=== PATIENT | female | born 1975 | race Caucasian/White ===

== ENCOUNTER 2018-11-12 22:15 | Emergency (ER) | payer SELFPAY ==
[2018-11-12 22:32] VITALS: BP 151/76; PULSE 114; TEMP 102; BMI 28.0
--- NOTE | 2018-11-12 22:44 | PDOC ---
History of Present Illness - General Chief Complaint: SIRS, Suspected/Possible Stated Complaint: urinary problem Time Seen by Provider: 11/12/18 22:43 - History of Present Illness Initial Comments: 42yo F with history of obesity, hysterectomy, UTI presenting with fever, chills , myalgia, malaise, dysuria, frequency, urgency x 1 week. Patient states she has had a fever for about a week, as well as dysuria and frequency. She was seen at a clinic today and was given 1g of rocephin and sent with a keflex prescription. Patient presents to this ED because she has continued to have a fever and was instructed to see a doctor if her fever were to persist. Denies history of kidney stones. She has had some nausea but no vomiting. Patient also reports back pain. Last bowel movement was today and was a normal formed brown stool without blood. No chest pain or shortness of breath. Past History - Past Medical History Allergies/Adverse Reactions: Allergies Allergy/AdvReac Type Severity Reaction Status Date / Time No Known Allergies Allergy Verified 11/12/18 22:34 COPD: No - Suicide/Smoking/Psychosocial Hx Smoking History: Never smoked Have you smoked in the past 12 months: No Information on smoking cessation initiated: No Hx Alcohol Use: No Drug/Substance Use Hx: No Review of Systems - Review of Systems Comments:: Constitutional: +fever, +chills HEENT: no throat pain, no dysphagia Cardiovascular: no chest pain, no palpitations Respiratory: no cough, no shortness of breath Gastrointestinal: +nausea, no vomiting Genitourinary: +dysuria, +frequency Musculoskeletal: no myalgia, no arthralgia Skin: no rash, no itching Neurologic: no headache, no dizziness *Physical Exam - Vital Signs Last Vital Signs Temp Pulse Resp BP Pulse Ox 102.0 F H 114 H 16 151/76 100 11/12/18 22:28 11/12/18 22:28 11/12/18 22:28 11/12/18 22:28 11/12/18 22:28 - Physical Exam Comments: General: Awake, alert, and fully oriented, in no acute distress Head: No signs of trauma Eyes: EOMI, sclera anicteric ENT: Moist mucus membranes Neck: Normal ROM, supple Lungs: Lungs clear, Normal breath sounds Cardio: Regular rhythm, S1 and S2 present, grade II systolic murmur present Abdomen: Mild epigastric and suprapubic tenderness to palpation. Soft, nondistended. No guarding, no rebound, no masses. +CVA tenderness bilaterally Extremities: Normal range of motion, Distal pulses present SKIN: Warm, Dry, normal turgor Neurologic: Cranial nerves II through XII grossly intact. Normal speech Moderate Sedation - Procedure Monitoring Vital Signs: Procedure Monitoring Vital Signs Temperature 102.0 F H 11/12/18 22:28 Pulse Rate 114 H 11/12/18 22:28 Respiratory Rate 16 11/12/18 22:28 Blood Pressure 151/76 11/12/18 22:28 O2 Sat by Pulse Oximetry (%) 100 11/12/18 22:28 ED Treatment Course - LABORATORY CBC & Chemistry Diagram: 11/12/18 23:52 11/12/18 23:52 Medical Decision Making - Medical Decision Making 42yo F with history of obesity, hysterectomy presenting with fever, chills, myalgia, malaise, dysuria, frequency, urgency x 1 week. DDX includes but not limited UTI, complicated vs simple; pyelonephritis; kidney stone; ectopic Ofirmev, Zofran, 1L NS Labs from septic order set sent CTAP with contrast ordered 11/12/18 23:45 Patient signed out to Dr. Ryan *DC/Admit/Observation/Transfer Diagnosis at time of Disposition: UTI (urinary tract infection) - Discharge Dispostion Disposition: HOME Condition at time of disposition: Good - Referrals - Patient Instructions Printed Discharge Instructions: DI for Urinary Tract Infection (UTI) Additional Instructions: Please continue taking your keflex. Please return if you have any new, worsening or concerning symptoms, especially weakness and increasing pain. Please return if you do not improve in 2-3 days. Please follow up with your primary care physician. Por favor contine tomando govea keflex. Por favor regrese si tiene sntomas nuevos, que empeoran o estn relacionados, especialmente la debilidad y el dolor creciente. Por favor regrese si no mejora en 2-3 barragan. Por favor maria g un seguimiento con govea mdico de atencin primaria. - Post Discharge Activity
[2018-11-12] MEDS ORDERED: CEFTRIAXONE 1,000 MG in DEXTROSE 5%-WATER - 50 ML IVPB ONE (23:21)
[2018-11-12] MEDS ORDERED: ACETAMINOPHEN 1000 MG/100 ML VIAL (NON FORMULARY) IVPB ONE (23:21)
[2018-11-12] MEDS ORDERED: SODIUM CHLORIDE 1,000 ML IV STA (23:21)
[2018-11-12] MEDS ORDERED: ONDANSETRON 4 MG/2 ML VIAL IVPUSH ONE (23:23)
--- NOTE | 2018-11-12 23:59 | PDOC ---
Attending Attestation - HPI HPI: 11/13/18 00:00 The patient is a 42 year old female with past medical history significant for UTIs presents to the emergency department with a fever, headache, abdominal pain, back pain and urinary symptoms. The patient presents with 5 days of fever , chills, myalgia, fatigue, abdominal pain/bloating, back pain, dysuria, frequency/urgency to urinate. The patient reports she was seen at a clinic earlier today, where was given 1 dose of rocephin and sent home with Keflex prescription. The patient states at the clinic her temp was 104 that improves. The patient presents secondary to no relief in symptoms. Denies hematuria, vomiting, diarrhea, or constipation. Denies chest pain and SOB. Denies hx of Kidney stones. Allergies: NKDA Surgical history: Hysterectomy. - Physicial Exam PE: 11/13/18 00:00 Vitals: Triage vital signs reviewed General Appearance: No acute distress, well nourished, well developed Neck: Supple; No nuchal rigidity Chest Wall: Nontender Cardiac: Regular rate and rhythm, no murmurs, no rubs, no gallops Lungs: Clear to auscultation bilateral, good air movement bilaterally Abdomen: +epigastric pain, Bilateral flank pain. Soft, nondistended. Extremities: Full range of motion to all extremities, no cyanosis, clubbing, or edema Skin: Warm and dry, no rashes or lesions, no rash, no petechiae. - Medical Decision Making 11/13/18 00:00 Documentation prepared by Aneta Sanon, acting as expert medical writer for Onel South MD. 11/13/18 00:01 Plan: Labs: CBC, CMP, Lactic Acid, Serum , UA, Blood/Urine Culture. Meds: Nausea medication and pain medication. Imaging: CT Abdomen/Pelvic. <Aneta Sanon - Last Filed: 11/13/18 00:02> - Medical Decision Making 11/13/18 02:41 Patient Name: ALONSO HERRERA THIS IS A PRELIMINARY REPORT FROM [facility]ACHIN[facility] DATE OF SERVICE: 2018-11-13 01:51:49 IMAGES: [id number] EXAM: CT ABDOMEN \T\ PELVIS CT WITH CONTR HISTORY: Abdominal pain, nonspecified COMPARISON: None. FINDINGS: Abdomen Liver: Normal Spleen: Normal Pancreas: Normal Gallbladder: Normal Stomach: Normal Small bowel: Normal Large bowel: Normal Appendix: Normal Adrenals:Normal Kidneys: Normal Vascular: Normal Lymphatic: Normal Peritoneal: No free peritoneal air or fluid Pelvis: Uterus: normal Rectum: Normal Bladder: Normal The inferior thorax: Normal General: Skeletal: Normal Abdominal wall: Normal IMPRESSION: No acute findings 11/13/18 Influenza is negative. Pt will be discharged home. <Veena Sorensen - Last Filed: 11/13/18 04:40> - Resident Resident Name: Krystal Hightower - ED Attending Attestation I have performed the following: I have examined & evaluated the patient, The case was reviewed & discussed with the resident, I agree w/resident's findings & plan, Exceptions are as noted - Medical Decision Making 42 years old with 5 day history of fever recently diagnosed with UTI given 1 g ceftriaxone and prescription for Keflex as an outpatient returned home again developed fever began feeling unwell with suprapubic discomfort and mild diffuse abdominal discomfort and presented to the ED for further evaluation Her laboratory analysis is unremarkable she feels better after IV fluids and IV Tylenol given the persistence of her pain and fever a CAT scan with IV contrast was ordered which is pending Dr. Sorensen to follow up CT reasses and dispo <Onel South - Last Filed: 11/13/18 20:32>
[2018-11-13 00:06] LABS: BASO % 0.3 % (0-2.0); EOS % 0.2 % (0-4.5); HEMATOCRIT 38.7 % (32.4-45.2); HEMOGLOBIN 13.6 GM/dL (10.7-15.3); LYMPH % 11.3 % (8-40); MCH 33.2 pg (25.7-33.7); MCHC 35.2 g/dl (32.0-36.0); MEAN CELL VOLUME 94.2 fl (80-96); MEAN PLT VOLUME 9.6 fl (7.5-11.1); MONO % 12.2 % (3.8-10.2); PLATELET COUNT 205 K/MM3 (134-434); RDW 13.4 % (11.6-15.6); WHITE BLOOD COUNT 9.2 K/mm3 (4.0-10.0)
[2018-11-13] MEDS ORDERED: ACETAMINOPHEN INJECTION 100 ML IVPB ONE (00:07)
[2018-11-13] MEDS ORDERED: ONDANSETRON 4 MG/2 ML VIAL ONE (00:07)
--- NOTE | 2018-11-13 00:09 | PDOC ---
*Physical Exam - Vital Signs Last Vital Signs Temp Pulse Resp BP Pulse Ox 102.0 F H 114 H 16 151/76 100 11/12/18 22:28 11/12/18 22:28 11/12/18 22:28 11/12/18 22:28 11/12/18 22:28 ED Treatment Course - LABORATORY CBC & Chemistry Diagram: 11/12/18 23:52 11/12/18 23:52 Medical Decision Making - Medical Decision Making 11/13/18 00:04 42 year old female with PMH multiple UTIs, hysterectomy presented to ED for fever of 102F after being diagnosed with UTI at outpatient clinic today. Pt was advised to come to ED if she had a fever. Pt did not take any tylenol or motrin before presentation to ED. Initial Vital Signs Temp Pulse Resp BP Pulse Ox 102.0 F H 114 H 16 151/76 100 11/12/18 22:28 11/12/18 22:28 11/12/18 22:28 11/12/18 22:28 11/12/18 22:28 Febrile. Tachycardic. No tachypnea. Mild hypertension. No hypoxia on room air. o Labs ordered: CBC, CMP, UA, serum preg, lactic acid, blood cultures c Imaging ordered: CT abdomen/pelvis g Medications ordered: normal saline bolus, tylenol, zofran, zosyn 11/13/18 00:35 CBC WBC 9.2 K/mm3 (4.0-10.0) 11/12/18 23:52 RBC 4.10 M/mm3 (3.60-5.2) 11/12/18 23:52 Hgb 13.6 GM/dL (10.7-15.3) 11/12/18 23:52 Hct 38.7 % (32.4-45.2) 11/12/18 23:52 MCV 94.2 fl (80-96) 11/12/18 23:52 MCH 33.2 pg (25.7-33.7) 11/12/18 23:52 MCHC 35.2 g/dl (32.0-36.0) 11/12/18 23:52 RDW 13.4 % (11.6-15.6) 11/12/18 23:52 Plt Count 205 K/MM3 (134-434) 11/12/18 23:52 MPV 9.6 fl (7.5-11.1) 11/12/18 23:52 Absolute Neuts (auto) 7.0 K/mm3 (1.5-8.0) 11/12/18 23:52 Neutrophils % 76.0 % (42.8-82.8) 11/12/18 23:52 Lymphocytes % 11.3 % (8-40) 11/12/18 23:52 Monocytes % 12.2 % (3.8-10.2) H 11/12/18 23:52 Eosinophils % 0.2 % (0-4.5) 11/12/18 23:52 Basophils % 0.3 % (0-2.0) 11/12/18 23:52 Nucleated RBC % 0 % (0-0) 11/12/18 23:52 No leukocytosis. No anemia. 11/13/18 00:38 CMP Sodium 134 mmol/L (136-145) L 11/12/18 23:52 Potassium 3.9 mmol/L (3.5-5.1) 11/12/18 23:52 Chloride 99 mmol/L (98-107) 11/12/18 23:52 Carbon Dioxide 26 mmol/L (21-32) 11/12/18 23:52 Anion Gap 8 MMOL/L (8-16) 11/12/18 23:52 BUN 10 mg/dL (7-18) 11/12/18 23:52 Creatinine 0.7 mg/dL (0.55-1.3) 11/12/18 23:52 Creat Clearance w eGFR > 60 (>60) 11/12/18 23:52 Random Glucose 125 mg/dL (74-106) H 11/12/18 23:52 Calcium 8.2 mg/dL (8.5-10.1) L 11/12/18 23:52 Total Bilirubin 0.6 mg/dL (0.2-1) 11/12/18 23:52 AST 24 U/L (15-37) 11/12/18 23:52 ALT 28 U/L (13-61) 11/12/18 23:52 Alkaline Phosphatase 83 U/L (45-117) 11/12/18 23:52 Total Protein 7.1 g/dl (6.4-8.2) 11/12/18 23:52 Albumin 3.1 g/dl (3.4-5.0) L 11/12/18 23:52 No electrolyte abnormalities. No BERTRAND. No transaminitis. 11/13/18 01:44 Urine Test Results Urine Color Ltyellow 11/13/18 00:35 Urine Appearance Clear 11/13/18 00:35 Urine pH 6.0 (5.0-8.0) 11/13/18 00:35 Ur Specific [place] 1.006 (1.010-1.035) L 11/13/18 00:35 Urine Protein 1+ (NEGATIVE) H 11/13/18 00:35 Urine Glucose (UA) Negative (NEGATIVE) 11/13/18 00:35 Urine Ketones Negative (NEGATIVE) 11/13/18 00:35 Urine Blood 2+ (NEGATIVE) H 11/13/18 00:35 Urine Nitrite Negative (NEGATIVE) 11/13/18 00:35 Urine Bilirubin Negative (<2.0 mg/dL) 11/13/18 00:35 Ur Leukocyte Esterase y Trace (NEGATIVE) 11/13/18 00:35 Ur Epithelial Cells Rare /HPF (FEW) 11/13/18 00:35 Urine Mucus Rare 11/13/18 00:35 o WBC=10 o Urine positive for UTI. 11/13/18 01:46 Pt reassesed, reported improvement of symptoms. Pt signed out to Dr. Beckham. Pending CT report and influenza testing. 11/14/18 18:[address] Flu testing negative[address] c CT abdomen/pelvis report: no CT findings of acute pathology. *DC/Admit/Observation/Transfer Diagnosis at time of Disposition: UTI (urinary tract infection) - Discharge Dispostion Disposition: HOME Condition at time of disposition: Good - Referrals - Patient Instructions Printed Discharge Instructions: DI for Urinary Tract Infection (UTI) Additional Instructions: Please continue taking your keflex. Please return if you have any new, worsening or concerning symptoms, especially weakness and increasing pain. Please return if you do not improve in 2-3 days. Please follow up with your primary care physician. Por favor contine tomando govea keflex. Por favor regrese si tiene sntomas nuevos, que empeoran o estn relacionados, especialmente la debilidad y el dolor creciente. Por favor regrese si no mejora en 2-3 barragan. Por favor maria g un seguimiento con govea mdico de atencin primaria. - Post Discharge Activity
[2018-11-13] MEDS ORDERED: PIPERACILLIN/TAZOB 3.375 GM 3.375 GM in DEXTROSE 5%-WATER - 50 ML IVPB ONE (00:15)
[2018-11-13 00:36] LABS: ALBUMIN 3.1 g/dl (3.4-5.0); ALK PHOS 83 U/L (45-117); ANION GAP 8 MMOL/L (8-16); BILIRUBIN,TOTAL 0.6 mg/dL (0.2-1); BLOOD UREA NITROGEN 10 mg/dL (7-18); CALCIUM 8.2 mg/dL (8.5-10.1); CHLORIDE 99 mmol/L (98-107); CO2 26 mmol/L (21-32); CREATININE 0.7 mg/dL (0.55-1.3); GLUCOSE,RANDOM 125 mg/dL (74-106); POTASSIUM 3.9 mmol/L (3.5-5.1); SGOT/AST 24 U/L (15-37); SGPT/ALT 28 U/L (13-61); SODIUM 134 mmol/L (136-145); TOT PROT 7.1 g/dl (6.4-8.2)
[2018-11-13] MEDS ORDERED: PIPERACILLIN/TAZOB 3.375 GM 3.375 GM/50 ML BAG IVPB ONE (00:52)
[2018-11-13 01:01] LABS: URINE APPEARANCE CLEAR; URINE BILIRUBIN NEGATIVE (<2.0 mg/dL); URINE COLOR LTYELLOW; URINE GLUCOSE (UA) NEGATIVE (NEGATIVE); URINE KETONE NEGATIVE (NEGATIVE); URINE LEUK ESTERASE TRACE (NEGATIVE); URINE NITRITE NEGATIVE (NEGATIVE); URINE PROTEIN 1+ (NEGATIVE); URINE UROBILINOGEN NEGATIVE mg/dL (0.2-1.0)
[2018-11-13 01:11] LABS: EPI CELLS RARE /HPF (FEW); URINE MUCUS RARE
--- NOTE | 2018-11-13 02:50 | PDOC ---
*Physical Exam - Vital Signs Last Vital Signs Temp Pulse Resp BP Pulse Ox 102.0 F H 114 H 16 151/76 100 11/12/18 22:28 11/12/18 22:28 11/12/18 22:28 11/12/18 22:28 11/12/18 22:28 ED Treatment Course - LABORATORY CBC & Chemistry Diagram: 11/12/18 23:52 11/12/18 23:52 - ADDITIONAL ORDERS Additional order review: Laboratory Results 11/13/18 11/12/18 11/12/18 00:35 23:59 23:52 Sodium Potassium Chloride Carbon Dioxide Anion Gap BUN Creatinine Creat Clearance w eGFR Random Glucose Lactic Acid 1.8 Calcium Total Bilirubin AST ALT Alkaline Phosphatase Total Protein Albumin Serum , Qual Negative Urine Color Ltyellow Urine Appearance Clear Urine pH 6.0 Ur Specific [place] 1.006 L Urine Protein 1+ H Urine Glucose (UA) Negative Urine Ketones Negative Urine Blood 2+ H Urine Nitrite Negative Urine Bilirubin Negative Urine Urobilinogen Negative Ur Leukocyte Esterase Trace Urine WBC (Auto) 10 Urine RBC (Auto) 3 Ur Epithelial Cells Rare Urine Mucus Rare 11/12/18 23:52 Sodium 134 L Potassium 3.9 Chloride 99 Carbon Dioxide 26 Anion Gap 8 BUN 10 Creatinine 0.7 Creat Clearance w eGFR > 60 Random Glucose 125 H Lactic Acid Calcium 8.2 L Total Bilirubin 0.6 AST 24 ALT 28 Alkaline Phosphatase 83 Total Protein 7.1 Albumin 3.1 L Serum , Qual Urine Color Urine Appearance Urine pH Ur Specific [place] Urine Protein Urine Glucose (UA) Urine Ketones Urine Blood Urine Nitrite Urine Bilirubin Urine Urobilinogen Ur Leukocyte Esterase Urine WBC (Auto) Urine RBC (Auto) Ur Epithelial Cells Urine Mucus 11/12/18 23:52 RBC 4.10 MCV 94.2 MCHC 35.2 RDW 13.4 MPV 9.6 Neutrophils % 76.0 Lymphocytes % 11.3 Monocytes % 12.2 H Eosinophils % 0.2 Basophils % 0.3 - Medications Given in the ED: ED Medications Discontinued Medications Generic Name Dose Route Start Last Admin Trade Name Freq PRN Reason Stop Dose Admin Acetaminophen 1,000 mg 11/12/18 23:21 11/13/18 00:28 Ofirmev Injection - IVPB 11/12/18 23:22 1,000 mg ONCE ONE Administration Ceftriaxone Sodium 1,000 mg/ 50 mls @ 100 mls/hr 11/12/18 23:21 11/13/18 00: 28 Dextrose IVPB 11/12/18 23:50 Not Given ONCE ONE Sodium Chloride 1,000 mls @ 1,000 mls/hr 11/12/18 23:21 11/13/18 00:27 Normal Saline - IV 11/13/18 00:20 1,000 mls/hr ASDIR STA Administration Piperacillin Sod/Tazobactam 50 mls @ 100 mls/hr 11/13/18 00:15 11/13/18 01:01 Sod 3.375 gm/ Dextrose IVPB 11/13/18 00:44 100 mls/hr ONCE ONE Administration Protocol Ondansetron HCl 4 mg 11/12/18 23:23 11/13/18 00:28 Zofran Injection IVPUSH 11/12/18 23:24 4 mg ONCE ONE Administration Medical Decision Making - Medical Decision Making 11/13/18 02:[address] Ryan. Patient is 42F here today with fever, likely source is UTI. Patient currently on keflex. CT a/p and flu pending, discharge if patient continues to improve with normal ct and vitals. Revitalized, bps normal, temp normal, HR normal. 11/13/18 04:29 Flu negative. *DC/Admit/Observation/Transfer Diagnosis at time of Disposition: UTI (urinary tract infection) - Discharge Dispostion Disposition: HOME Condition at time of disposition: Good Decision to Admit order: No - Referrals - Patient Instructions Printed Discharge Instructions: DI for Urinary Tract Infection (UTI) Additional Instructions: Please continue taking your keflex. Please return if you have any new, worsening or concerning symptoms, especially weakness and increasing pain. Please return if you do not improve in 2-3 days. Please follow up with your primary care physician. Por favor contine tomando govea keflex. Por favor regrese si tiene sntomas nuevos, que empeoran o estn relacionados, especialmente la debilidad y el dolor creciente. Por favor regrese si no mejora en 2-3 barragan. Por favor maria g un seguimiento con govea mdico de atencin primaria. - Post Discharge Activity
== END 2018-11-13 04:41 | disposition home or self-care (01) ==
LOC: JER 22:15
PROC: 3E03329 Introduction of Other Anti-infective into Peripheral Vein, Percutaneous Approach (ICD-10-PCS; principal; 2018-11-12)
PROC: 3E033NZ Introduction of Analgesics, Hypnotics, Sedatives into Peripheral Vein, Percutaneous Approach (ICD-10-PCS; 2018-11-12)
PROC: 3E033GC Introduction of Other Therapeutic Substance into Peripheral Vein, Percutaneous Approach (ICD-10-PCS; 2018-11-12)
DX: N39.0 Urinary tract infection, site not specified (principal)
CPT/HCPCS: 36415; 74177-TC; 80053; 81003; 81015; 83605; 84703; 85025; 87040; 87086; 87804; 99282-25; J0131; J7030